=== PATIENT | male | born 1975 | race Caucasian/White ===

== ENCOUNTER 2019-07-03 14:14 | Emergency (ER) | payer BC ==
[~2019-07-03] VITALS: Ht 175.3 cm; Wt 100.0 kg
[2019-07-03 14:19] VITALS: BP 166/94
[2019-07-03] MEDS ORDERED: LIDOcaine 1% w/EPI 1:200,000 injection 10mL vial IM ONE (14:30)
[2019-07-03] MEDS ORDERED: TETanus/Pertussis (Acell)/Diphther VAC/PF (Tdap-Adult) 0.5ml syringe IM ONE (14:30)
[2019-07-03] MEDS ORDERED: LIDOcaine 1% W/epiNEPHrine 1:100,000 20ml vial IJ ONE (14:35)
== END 2019-07-03 15:06 | disposition home or self-care (01) ==
LOC: ER 14:15
DX: S91.312A Laceration without foreign body, left foot, initial encounter (principal); I10 Essential (primary) hypertension; F10.99 Alcohol use, unspecified with unspecified alcohol-induced disorder; W26.8XXA Contact with other sharp object(s), not elsewhere classified, initial encounter; Y93.89 Activity, other specified; Y92.89 Other specified places as the place of occurrence of the external cause; Y99.8 Other external cause status; Y90.9 Presence of alcohol in blood, level not specified
CPT/HCPCS: 12002; 90471; 99283

== ENCOUNTER 2019-07-05 10:49 | Emergency (ER) | payer BC ==
[~2019-07-05] VITALS: Ht 175.3 cm; Wt 106.6 kg
[2019-07-05 10:53] VITALS: BP 156/95
== END 2019-07-05 11:49 | disposition home or self-care (01) ==
LOC: ER 10:50
DX: S91.111D Laceration without foreign body of right great toe without damage to nail, subsequent encounter (principal); I10 Essential (primary) hypertension; X58.XXXD Exposure to other specified factors, subsequent encounter
CPT/HCPCS: 99281